=== PATIENT | male | born 1985 | race Caucasian/White ===

== ENCOUNTER 2018-01-31 23:20 | Emergency (ER) | payer SELFPAY ==
[~2018-01-31] VITALS: Ht 162.6 cm; Wt 97.5 kg
[2018-01-31 23:27] VITALS: BP 150/71
--- NOTE | 2018-01-31 23:27 | NUR ---
TO BED # 8 AMB. REPORT GIVEN TO LIZZETTE REED
--- NOTE | 2018-01-31 23:30 | NUR ---
Note undone in EDM - 02/01/18 at 0004 by PANTERA PATIENT PRESENTS TO ED WITH C/O BILAT ANKLE PAIN RADIATING TO BILAT KNEES X 2 DAYS . PT DENIES ANY INJURY/TRAUMA/FALL. +ROM, +CMS . PATIENT DENIES N/V/D; SKIN IS PINK/WARM/DRY; AAOX4 WITH EVEN AND STEADY GAIT; LUNGS CLEAR BL; HR EVEN AND REGULAR; PT DENIES ANY FEVER, CP, SOB, OR COUGH AT THIS TIME; PATIENT STATES PAIN OF 6/10 AT THIS TIME; VSS; PATIENT POSITIONED FOR COMFORT; HOB ELEVATED; BEDRAILS UP X2; BED DOWN. ER MD MADE AWARE OF PT STATUS.
--- NOTE | 2018-01-31 23:30 | NUR ---
PATIENT PRESENTS TO ED WITH C/O BILAT ANKLE PAIN RADIATING TO BILAT KNEES X 2 WEEKS . PT DENIES ANY INJURY/TRAUMA/FALL. +ROM, +CMS, NO DEFORMITY NOTED .AMBULATORY WITH STEADY GAIT. PATIENT GCS 15;AAOX4. PATIENT DENIES N/V/D; SKIN IS PINK/WARM/DRY; AAOX4 LUNGS CLEAR BL; HR EVEN AND REGULAR; PT DENIES ANY FEVER, CP, SOB, OR COUGH AT THIS TIME; PATIENT STATES PAIN OF 6/10 AT THIS TIME; VSS; PATIENT POSITIONED FOR COMFORT; HOB ELEVATED; BEDRAILS UP X2; BED DOWN. ER MD MADE AWARE OF PT STATUS.
--- NOTE | 2018-02-01 00:38 | NUR ---
Patient being evaluated by physician at bedside.
[2018-02-01] MEDS ORDERED: KETOROLAC 30 MG/ML VIAL IM ONE (00:50)
[2018-02-01 02:10] VITALS: BP 137/84
== END 2018-02-01 02:10 | disposition home or self-care (01) ==
LOC: MED 23:20
DX: M25.561 Pain in right knee (principal); M25.562 Pain in left knee; R20.2 Paresthesia of skin; R20.0 Anesthesia of skin; E11.9 Type 2 diabetes mellitus without complications
CPT/HCPCS: 73590; 96372; 99283; J1885; Q0092